=== PATIENT | female | born 1985 | race American Indian/Alaskan Native ===

== ENCOUNTER 2022-01-14 14:01 | Emergency (ER) | payer SELFPAY ==
[2022-01-14 14:36] VITALS: BP 132/64
[2022-01-14 16:13] LABS: Hematocrit 36.9 % (30.3-42.9); Hemoglobin 11.6 gm/dl (10.1-14.3); Mean Corpuscular HGB Conc 31 % (30-34); Mean Corpuscular Volume 93 fl (79-97); Red Blood Count 3.98 M/mm3 (3.65-5.03); Red Cell Distribution Width 17.2 % (13.2-15.2)
[2022-01-14 16:15] LABS: Platelet Count 53 K/mm3 (140-440)
[2022-01-14 16:41] LABS: Alanine Aminotransferase 11 units/L (7-56); Albumin 4.7 g/dL (3.9-5); BUN/Creatinine Ratio 19; Blood Urea Nitrogen 13 mg/dL (7-17); Hemolysis Index 156
[2022-01-14 16:56] LABS: Basophils % (Manual) 0 % (0.0-1.8); Eosinophils % (Manual) 0 % (0.0-4.3); Total Cells Counted 100
[2022-01-14 16:57] LABS: Burr Cells 1+; Platelet Estimate Consistent w Auto
[2022-01-14] MEDS ORDERED: METOCLOPRAMIDE 10 MG/2 ML INJ IV ONE (21:56)
[2022-01-14] MEDS ORDERED: LACTATED RINGERS 1,000 ML IV ONE (21:56)
[2022-01-14] MEDS ORDERED: diphenhydrAMINE 50 MG/ML VIAL IV ONE (21:56)
[2022-01-14 23:46] LABS: Bilirubin,Urine NEG (Negative); Blood,Urine MOD (Negative); Color,Urine Yellow (Yellow); HCG Qualitative,Urine Negative (Negative); Mucus,Urine 1+ /HPF; Urobilinogen,Urine < 2.0 mg/dL (<2.0)
--- NOTE | 2022-01-15 00:31 | Emergency Department Report ---
ED N/V/D HPI - General Chief complaint: Nausea/Vomiting/Diarrhea Stated complaint: WEAKNESS,VOMITING Source: patient, EMS Mode of arrival: Wheelchair Limitations: No Limitations - History of Present Illness Initial comments: Patient is a 36-year-old -[place] female with a history of chronic iron deficiency anemia presents to the ED with complaint of acute onset persistent intractable nausea and vomiting with generalized weakness and fatigue for the last 2 days, worse in the last 12 hours. Patient states that she has not been able to keep anything down in the last 12 hours and has had multiple vomiting episodes. Patient states that no one else at home has had similar symptoms although she admits to having consumed some food at home 2 days ago. Patient denies diarrhea, abdominal pain, chest pain, shortness of breath, fever, chills, headache, cough, sore throat, nasal and sinus congestion, dysuria, urinary frequency and urgency, vaginal bleeding or vaginal discharge or low back pain. MD complaint: nausea, vomiting, other (Generalized fatigue and weakness) -: Sudden, days(s) (2) Description of Vomiting: food contents, watery, bilious Associated Abdominal Pain: No Location: diffuse Severity: severe Pain Scale: 2 Quality: dull Consistency: intermittent Improves with: none Worsens with: eating, vomiting Context: possible food poisoning Associated Symptoms: denies other symptoms, loss of appetite, malaise, nausea/vomiting, weakness. denies: myalgias, chest pain, cough, diaphoresis, fever/chills, headaches, rash, shortness of breath, syncope - Related Data Previous Rx's Medication Instructions Recorded Last Taken Type Dicyclomine [Bentyl] 20 mg PO Q6H PRN #20 tablet 01/15/22 Unknown Rx Famotidine [Pepcid] 20 mg PO BID #60 tablet 01/15/22 Unknown Rx Ondansetron [Zofran Odt] 4 mg PO Q6HR PRN #20 tab.rapdis 01/15/22 Unknown Rx Promethazine [Phenergan] 25 mg SC Q6HR PRN #20 supp.rect 01/15/22 Unknown Rx Allergies Allergy/AdvReac Type Severity Reaction Status Date / Time Penicillins Allergy Unknown Verified 01/14/22 14:37 ED Review of Systems ROS: Stated complaint: WEAKNESS,VOMITING Other details as noted in HPI Constitutional: denies: chills, fever Eyes: denies: eye pain, eye discharge, vision change ENT: denies: ear pain, throat pain Respiratory: denies: cough, shortness of breath, wheezing Cardiovascular: denies: chest pain, palpitations Endocrine: no symptoms reported Gastrointestinal: nausea, vomiting. denies: abdominal pain, diarrhea Genitourinary: denies: urgency, dysuria, discharge Musculoskeletal: denies: back pain, joint swelling, arthralgia Skin: denies: rash, lesions Neurological: denies: headache, weakness, paresthesias Psychiatric: denies: anxiety, depression Hematological/Lymphatic: denies: easy bleeding, easy bruising ED Past Medical Hx - Past Medical History Previous Medical History?: Yes Additional medical history: Iron deficiency anemia - Medications Home Medications: Home Medications Medication Instructions Recorded Confirmed Last Taken Type Dicyclomine [Bentyl] 20 mg PO Q6H PRN #20 tablet 01/15/22 Unknown Rx Famotidine [Pepcid] 20 mg PO BID #60 tablet 01/15/22 Unknown Rx Ondansetron [Zofran Odt] 4 mg PO Q6HR PRN #20 tab.rapdis 01/15/22 Unknown Rx Promethazine [Phenergan] 25 mg SC Q6HR PRN #20 supp.rect 01/15/22 Unknown Rx ED Physical Exam - General Limitations: No Limitations General appearance: alert, in no apparent distress - Head Head exam: Present: atraumatic, normocephalic, normal inspection - Eye Eye exam: Present: normal appearance, PERRL, EOMI Pupils: Present: normal accommodation - ENT ENT exam: Present: normal exam, normal orophraynx, mucous membranes moist, TM's normal bilaterally, normal external ear exam - Neck Neck exam: Present: normal inspection, full ROM. Absent: tenderness - Respiratory Respiratory exam: Present: normal lung sounds bilaterally. Absent: respiratory distress, wheezes, rales, rhonchi, chest wall tenderness, accessory muscle use, decreased breath sounds, prolonged expiratory, other - Cardiovascular Cardiovascular Exam: Present: normal rhythm, bradycardia, normal heart sounds. Absent: systolic murmur, diastolic murmur, rubs, gallop - GI/Abdominal GI/Abdominal exam: Present: soft, normal bowel sounds. Absent: tenderness, guarding, hyperactive bowel sounds, hypoactive bowel sounds, organomegaly, mass - Extremities Exam Extremities exam: Present: normal inspection, full ROM, normal capillary refill - Back Exam Back exam: Present: normal inspection, full ROM. Absent: tenderness, CVA tenderness (L), muscle spasm, paraspinal tenderness, vertebral tenderness - Neurological Exam Neurological exam: Present: alert, oriented X3, CN II-XII intact, normal gait, reflexes normal - Psychiatric Psychiatric exam: Present: normal affect, normal mood - Skin Skin exam: Present: warm, dry, intact, normal color. Absent: rash ED Course Vital Signs 01/14/22 14:34 Temperature 98.3 F Pulse Rate 57 L Respiratory 18 Rate Blood Pressure 132/64 [Left] O2 Sat by Pulse 98 Oximetry ED Medical Decision Making - Lab Data Result diagrams: 01/14/22 15:24 01/14/22 18:51 - Medical Decision Making This is a 36-year-old -[place] female with a history of chronic iron deficiency anemia presents to the ED with complaint of acute onset persistent intractable nausea and vomiting with generalized weakness and fatigue for the last 2 days, worse in the last 12 hours. Patient states that she has not been able to keep anything down in the last 12 hours and has had multiple vomiting episodes. Patient states that no one else at home has had similar symptoms alth ough she admits to having consumed some food at home 2 days ago. In the ED, patient is alert and oriented x3 and is not in any distress. Patient is hemodynamically stable. Lab test results were reviewed and are all nonactionable including urinalysis. Patient was treated in the ED with normal saline 1 L IV bolus x1, also received antiemetics and antacids. On reevaluation, patient felt better, nausea and vomiting resolved, patient passed oral fluid challenge in the ED and was discharged home on medications including antiemetics and antacids and was advised to maintain a clear liquid diet for 12 to 24 hours, then plenty of fluids and follow-up with the primary care physician in 5 to 7 days for reevaluation. Patient was advised return to the ED immediately if symptoms get worse. - Differential Diagnosis Viral gastroenteritis; dehydration; GERD; UTI; Critical care attestation.: If time is entered above; I have spent that time in minutes in the direct care of this critically ill patient, excluding procedure time. ED Disposition Clinical Impression: Viral gastroenteritis, Nausea and vomiting in adult Disposition: 01 HOME / SELF CARE / HOMELESS Is pt being admited?: No Does the pt Need Aspirin: No Condition: Stable Instructions: Viral Gastroenteritis, Adult, [id number], Nausea and Vomiting, Adult, [id number] Additional Instructions: All lab test results were reviewed and are all nonactionable. Therefore maintain a clear liquid diet for 12 to 24 hours, drink plenty of fluids, take medication as needed for nausea and vomiting and follow-up with your primary care physician in 5 to 7 days for reevaluation. Return to the ED immediately if symptoms get worse. Prescriptions: Dicyclomine [Bentyl] 20 mg PO Q6H PRN #20 tablet PRN Reason: Abdominal pain Famotidine [Pepcid] 20 mg PO BID #60 tablet Promethazine [Phenergan] 25 mg SC Q6HR PRN #20 supp.rect PRN Reason: Nausea And Vomiting Ondansetron [Zofran Odt] 4 mg PO Q6HR PRN #20 tab.rapdis PRN Reason: Nausea And Vomiting Referrals: [facility] [Provider Group] - 3-5 Days Time of Disposition: 01:37 Print Language: NAMIBIAN
[2022-01-15] MEDS ORDERED: ONDANSETRON 4 MG/2 ML INJ IV ONE (01:36)
== END 2022-01-15 02:13 | disposition home or self-care (01) ==
LOC: EDSEX → ED 14:01
DX: A08.4 Viral intestinal infection, unspecified (principal); R11.2 Nausea with vomiting, unspecified; Z88.0 Allergy status to penicillin
CPT/HCPCS: 36415; 80053; 81001; 81025; 83690; 84132; 85007; 85025; 96361; 96374; 96375; 99284; J1200; J2765; J7120; 99283